=== PATIENT | male | born 1975 | race Caucasian/White ===

== ENCOUNTER 2017-11-19 16:36 | Inpatient (IN) | payer OTHER ==
[~2017-11-19] VITALS: Ht 175.3 cm; Wt 88.9 kg
--- NOTE | 2017-11-19 16:53 | NUR ---
BIB RA C/O EPIGASTRIC PAIN, RADIATING TO THE UPPER ABDOMEN X 45 MIN, NOW RESOLVED. PLACED ON MONITOR. AWAITING MD ORDER
[2017-11-19] MEDS ORDERED: FAMOTIDINE/PF INJ 20 MG/2 ML VIAL IV ONE ×2 (17:00→17:11)
[2017-11-19] MEDS ORDERED: IV NS 0.9% 1,000 ML BAG IV ONE (17:00)
[2017-11-19] MEDS ORDERED: ONDANSETRON HCL/PF 4 MG/2 ML VIAL IVP ONE (17:00)
[2017-11-19] MEDS ORDERED: ONDANSETRON HCL/PF 4 MG/2 ML VIAL ONE (17:11)
[2017-11-19 17:21] LABS: BASOPHILS # (AUTO) 0.2 /CMM (0.0-0.2); EOSINOPHILS % (AUTO) 1.1 % (0.0-6.0); HEMATOCRIT 49 % (39-51); LYMPHOCYTES # (AUTO) 1.4 /CMM (0.8-4.8); LYMPHOCYTES % (AUTO) 11.5 % (20.0-44.0); MEAN CORPUSCULAR HGB CONC 35 g/dl (31.0-36.0); MEAN CORPUSCULAR VOLUME 90 fL (80-96); MONOCYTES # (AUTO) 0.7 /CMM (0.1-1.30); MONOCYTES % (AUTO) 5.5 % (2.0-12.0); NEUTROPHILS # (AUTO) 10.1 /CMM (1.8-8.9); NEUTROPHILS % (AUTO) 79.9 % (43.0-81.0); PLATELET COUNT (AUTO) 200 /CMM (150-450); RDW COEFFICIENT OF VARIATION 11.6 (11.5-15.0); RED BLOOD CELL COUNT(AUTO) 5.38 MIL/uL (4.5-6.0); WHITE BLOOD COUNT (AUTO) 12.5 K/uL (4.3-11.0)
--- NOTE | 2017-11-19 17:21 | NUR ---
LAC #18 IVG ACCESS. BLOOD SAMPLE COLLECTED SENT TO LAB
[2017-11-19 17:32] LABS: CALCIUM, SERUM 9.6 mg/dL (8.5-10.1); CARBON DIOXIDE 31 mmol/L (21-32); CHLORIDE 100 mmol/L (98-107); CREATININE 1.2 mg/dL (0.6-1.3); GLUCOSE 103 mg/dL (74-106); POTASSIUM 4.4 mmol/L (3.5-5.1); SODIUM SERUM 139 mmol/L (136-145); UREA NITROGEN, BLOOD 20 mg/dL (7-18)
[2017-11-19 17:38] LABS: ALANINE AMINOTRANSFERASE 262 U/L (12-78); ALBUMIN 4.5 g/dL (3.4-5.0); ALKALINE PHOSPHATASE 83 U/L (46-116); ASPARTATE AMINOTRANSFERASE 299 U/L (15-37); BILIRUBIN,DIRECT 0.7 mg/dL (0.0-0.2); BILIRUBIN,TOTAL 2.8 mg/dL (0.2-1.0); INR 0.98 (0.85-1.15); LIPASE 383 U/L (73-393); TOTAL PROTEIN, SERUM 8.2 g/dL (6.4-8.2)
[2017-11-19 17:39] LABS: TROPONIN I < 0.017 ng/mL (0.00-0.056)
--- NOTE | 2017-11-19 17:51 | NUR ---
URINE SAMPLE COLLECTED SENT TO LAB
[2017-11-19 17:54] LABS: APPEARANCE,URINE Clear (CLEAR); BILIRUBIN,URINE Negative (NEGATIVE); BLOOD, URINE Trace-intact Ery/uL (NEGATIVE); COLOR,URINE Yellow (YELLOW); KETONES,URINE Negative (NEGATIVE); LEUKOCYTE ESTERASE ,URINE Negative (NEGATIVE); NITRITE, URINE Negative (NEGATIVE); PROTEIN,URINE Negative (NEGATIVE); UGLUCOSE Negative (NEGATIVE)
[2017-11-19 18:19] LABS: BACTERIA,URINE Rare /HPF (None Seen); MUCUS,URINE Moderate /LPF (None Seen); RBC,URINE 0-2 /HPF (0-2); SQUAMOUS EPITHELIAL CELL,UR None Seen /HPF (None Seen); WBC,URINE NONE SEEN /HPF (0-3)
[2017-11-19] MEDS ORDERED: CEFTRIAXONE 1 G in IV D5W 50 ML IV ONE (18:30)
[2017-11-19] MEDS ORDERED: MORPHINE SULFATE INJ 2 MG/ML DISP.SYRIN IV ONE (18:30)
[2017-11-19] MEDS ORDERED: FLAGYL/NS RTU 500 MG/100 ML PIGGYBACK IV ONE (18:30)
[2017-11-19] MEDS ORDERED: IV NS 0.9% 1,000 ML IV PRN (18:31)
[2017-11-19] MEDS ORDERED: METRONIDAZOLE 500MG/ NS 100ML 100 ML IV ONE (18:45)
[2017-11-19] MEDS ORDERED: CEFTRIAXONE 1GM BAG (ER ONLY) 50 ML IV ONE (18:45)
[2017-11-19] MEDS ORDERED: MORPHINE SULFATE INJ 4 MG/ML DISP.SYRIN ONE (18:46)
[2017-11-19] MEDS ORDERED: MAG HYDROX/AL HYDROX/SIMETH 30 ML UDC PO PRN (19:00)
[2017-11-19] MEDS ORDERED: ONDANSETRON HCL/PF 4 MG/2 ML VIAL IV PRN (19:00)
[2017-11-19] MEDS ORDERED: ONDANSETRON HCL/PF 4 MG/2 ML VIAL IVP PRN (19:00)
[2017-11-19] MEDS ORDERED: FENTANYL PF 100MCG/2ML AMPUL IV PRN (19:00)
[2017-11-19] MEDS ORDERED: MAGNESIUM HYDROXIDE 30 ML UDC PO PRN (19:00)
--- NOTE | 2017-11-19 19:10 | NUR ---
REPORT GIVEN TO MONICA FOR [facility]
--- NOTE | 2017-11-19 20:00 | NUR ---
REPORT GIVEN TO CYNDEE FRYE FOR [facility].
--- NOTE | 2017-11-19 20:23 | NUR ---
TRANSFERRED PATIENT TO MS BED VIA WHEELCHAIR. AT BEDSIDE. NAD NOTED. VSS.
[2017-11-19 20:30] VITALS: BP 118/69
[2017-11-19] MEDS: PANTOPRAZOLE 40 MG VIAL IV SCH (21:23)
[2017-11-20] VITALS (8 sets, daily range): BP systolic 98–128; BP diastolic 63–78
[2017-11-20] MEDS ORDERED: METRONIDAZOLE 500MG/ NS 100ML 100 ML IV ONE (05:00)
[2017-11-20] MEDS: METRONIDAZOLE 500MG/ NS 100ML 500 MG in PREMIX 1 EA IV SCH ×2 (05:01→12:59)
[2017-11-20 05:52] LABS: BASOPHILS % (AUTO) 0.3 % (0.0-2.0); EOSINOPHILS % (AUTO) 3.7 % (0.0-6.0); HEMATOCRIT 47 % (39-51); HEMOGLOBIN 15.9 g/dL (13.5-17.5); MEAN CORPUSCULAR HGB CONC 34 g/dl (31.0-36.0); MEAN CORPUSCULAR VOLUME 91 fL (80-96); MONOCYTES # (AUTO) 0.7 /CMM (0.1-1.30); MONOCYTES % (AUTO) 8.5 % (2.0-12.0); NEUTROPHILS # (AUTO) 4.9 /CMM (1.8-8.9); NEUTROPHILS % (AUTO) 62.5 % (43.0-81.0); PLATELET COUNT (AUTO) 188 /CMM (150-450); RDW COEFFICIENT OF VARIATION 12.5 (11.5-15.0); RED BLOOD CELL COUNT(AUTO) 5.11 MIL/uL (4.5-6.0); WHITE BLOOD COUNT (AUTO) 7.8 K/uL (4.3-11.0)
[2017-11-20 06:33] LABS: ALBUMIN 3.7 g/dL (3.4-5.0); BILIRUBIN,TOTAL 2.7 mg/dL (0.2-1.0); CALCIUM, SERUM 8.7 mg/dL (8.5-10.1); CREATININE 1.1 mg/dL (0.6-1.3); PHOSPHORUS 3.8 mg/dL (2.5-4.9); POTASSIUM 4.6 mmol/L (3.5-5.1); TOTAL PROTEIN, SERUM 7.1 g/dL (6.4-8.2)
--- NOTE | 2017-11-20 07:24 | NUR ---
MS RN CLOSING NOTE Patient is resting comfortably AAOx4, breathing on RA with no SOB, and no signs of acute distress. Patient slept fairly well overnight and did not report any pain. Peripheral IV in left AC running NS at 100 ml/hr. Patient remained NPO for nuc medicine scan and possible cholecystectomy pending scan results. Bed is in low/locked position, two side rails up, call olson within reach. All orders carried out and patient needs met. Patient care endorsed to day shift nurse.
--- NOTE | 2017-11-20 07:30 | NUR ---
MS RN OPENING NOTES RECEIVED PATIENT IN STABLE CONDITION. IN NO APPARENT DISTRESS. BEDSIDE RAILS ARE UPX2. BED IS LOCKED AND LOWERED. CALL LIGHT IS WITHIN REACH. IV LINE IS INTACT AND PATENT. WILL CONTINUE TO MONITOR.
[2017-11-20] MEDS: PANTOPRAZOLE 40 MG VIAL IV SCH (09:00)
--- NOTE | 2017-11-20 09:45 | NUR ---
PATIENT IS HAVING A NUCLEAR MEDICINE SCAN. PROTONIX NOT ADMINISTERED.
--- NOTE | 2017-11-20 16:10 | NUR ---
PATIENT WAS TAKEN TO SURGERY.
[2017-11-20] MEDS ORDERED: MIDAZOLAM HCL 2 MG/2ML VIAL ONE (16:38)
[2017-11-20] MEDS ORDERED: ROCURONIUM BROMIDE 50 MG/5 ML ONE (16:39)
[2017-11-20] MEDS ORDERED: LIDOCAINE 1%-EPI 1:100,000 20 ML VIAL ONE (17:19)
[2017-11-20] MEDS ORDERED: BUPIVACAINE 0.25% 75 MG/30 ML VIAL ONE (17:19)
[2017-11-20] MEDS ORDERED: FENTANYL PF 100MCG/2ML AMPUL IV PRN (18:00)
[2017-11-20] MEDS ORDERED: CEFTRIAXONE 1 G in IV D5W 50 ML IV SCH (18:00)
--- NOTE | 2017-11-20 18:49 | NUR ---
MS RN CLOSING NOTES PATIENT IS IN STABLE CONDITION. IN NO APPARENT DISTRESS. BEDSIDE RAILS ARE UPX2. BED IS LOCKED AND LOWERED. CALL LIGHT IS WITHIN REACH. IV LINE IS INTACT AND PATENT. WILL ENDORSE CARE TO PROMOTION PRODUCER NURSE FOR [facility].
[2017-11-20] MEDS ORDERED: FENTANYL PF 100MCG/2ML AMPUL ONE (19:13)
--- NOTE | 2017-11-20 20:15 | NUR ---
MS RN OPENING NOTE Patient returned from surgery (lap cholecystectomy) AAOx4, on 2L O2 NC with no SOB, and no signs of acute distress. Patient has four bandages clean/dry/intact covering four incisions. IV fluids were resumed - NS at 100 ml/hr running through left AC 20g. Vitals WNL, patient is afebrile. Will continue to check vital signs q15min x4, q30min x2, and q1hr x4.
[2017-11-20] MEDS: CEFAZOLIN SODIUM 1 GM in IV SODIUM CHLORIDE 0.9% 50 ML IV SCH (21:22)
[2017-11-20] MEDS: HYDROCODONE/APAP 5/325MG 1 EACH TABLET PO PRN (21:23)
--- NOTE | 2017-11-20 21:23 | NUR ---
NORCO GIVEN ORDERED FOR C/O MOD ABD PAIN .WILL CONT TO MONITOR ,
[2017-11-20] MEDS ORDERED: SENNOSIDES 8.6 MG TABLET PO PRN (22:00)
[2017-11-20] MEDS: ACETAMINOPHEN 325 MG TABLET PO PRN (23:14)
--- NOTE | 2017-11-20 23:15 | NUR ---
MS RN NOTE - prn Tylenol Patient reported mild pain (3-4) at rest, exacerbated with changing position and taking deep breaths. Patient inquired about pain prescribed pain medication. Because patient received Anson just 2 hours ago, patient was offered prn Tylenol, which he was agreeable to. Will continue to monitor.
--- NOTE | 2017-11-21 01:26 | NUR ---
PT TOLERATED THE ICE CHIPS, WATER, JELLO AND CRACKER WELL. DIET UPGRADED TO REGULAR.
--- NOTE | 2017-11-21 02:35 | NUR ---
FENTANYL GIVEN ORDERED PER PT'S REQUEST FOR C/O SEVERE ABD. PAIN. PT MAINTAINED O2 SATURATION OF 95-96% ON RA. PT WAS PLACED ON SUPPLEMENTAL O2 AFTER RECEIVING THE MEDICATION AND REMAINED ON CONTINUOUS O2 SAT. MONITORING.
[2017-11-21] MEDS: CEFAZOLIN SODIUM 1 GM in IV SODIUM CHLORIDE 0.9% 50 ML IV SCH (05:02)
[2017-11-21] MEDS: ACETAMINOPHEN 325 MG TABLET PO PRN (05:33)
--- NOTE | 2017-11-21 06:30 | NUR ---
MS RN CLOSING NOTE Patient is AAOx4, breathing on RA with no SOB, and no signs of acute distress. Patient has four incisions covered with dressings that are clean, dry, and intact. Peripheral left AC 20g is running NS at 100 ml/hr. Vital signs remained stable post surgery. Patient's pain level is currently 3/10 - Fentanyl last given at 0232 and Tylenol given at 0533. Bed is in low/locked position, two side rails up, call olson within reach. All orders carried out and patient needs met. Patient care will be endorsed to day shift nurse.
[2017-11-21 07:20] LABS: ALBUMIN 3.7 g/dL (3.4-5.0); BILIRUBIN,TOTAL 3.2 mg/dL (0.2-1.0); CALCIUM, SERUM 8.7 mg/dL (8.5-10.1); CREATININE 1.2 mg/dL (0.6-1.3); POTASSIUM 4.3 mmol/L (3.5-5.1); TOTAL PROTEIN, SERUM 6.9 g/dL (6.4-8.2)
--- NOTE | 2017-11-21 07:24 | NUR ---
MS/RN Patient received Patient received from retail shift manager. Sleeping soundly at thistime, appears in no distress. Safety measures in place. Call light within reach, will continue to monitor and ensure safety.
[2017-11-21 07:36] LABS: BASOPHILS % (AUTO) 0.2 % (0.0-2.0); EOSINOPHILS % (AUTO) 0.2 % (0.0-6.0); HEMATOCRIT 43 % (39-51); HEMOGLOBIN 14.9 g/dL (13.5-17.5); LYMPHOCYTES # (AUTO) 1.2 /CMM (0.8-4.8); LYMPHOCYTES % (AUTO) 13.6 % (20.0-44.0); MEAN CORPUSCULAR HGB CONC 35 g/dl (31.0-36.0); MEAN CORPUSCULAR VOLUME 91 fL (80-96); MONOCYTES # (AUTO) 0.5 /CMM (0.1-1.30); MONOCYTES % (AUTO) 5.9 % (2.0-12.0); NEUTROPHILS # (AUTO) 6.9 /CMM (1.8-8.9); NEUTROPHILS % (AUTO) 80.1 % (43.0-81.0); PLATELET COUNT (AUTO) 186 /CMM (150-450); RDW COEFFICIENT OF VARIATION 12.4 (11.5-15.0); RED BLOOD CELL COUNT(AUTO) 4.71 MIL/uL (4.5-6.0); WHITE BLOOD COUNT (AUTO) 8.6 K/uL (4.3-11.0)
[2017-11-21 08:00] VITALS: BP 123/79
[2017-11-21 08:04] VITALS: BP 123/79
[2017-11-21] MEDS: DOCUSATE SODIUM 250 MG CAPSULE PO SCH ×2 (08:25→17:00)
[2017-11-21] MEDS: PANTOPRAZOLE 40 MG VIAL IV SCH (08:25)
--- NOTE | 2017-11-21 09:14 | NUR ---
MS/RN Medications Morning medications administered as ordered.
[2017-11-21] MEDS ORDERED: SIMETHICONE 80 MG TAB.CHEW PO PRN (12:00)
--- NOTE | 2017-11-21 12:30 | NUR ---
MS/RN New orders New order given for simethicone 80mg QID prn for gas pain. Pain medeication and gas pain med administered.
--- NOTE | 2017-11-21 15:00 | NUR ---
MS/RN S/B Dr Castellanos Seen by Dr Castellanos - discharge to be held due to elevated total bilirubin level continuing to rise, today level at 3.2. STAT MRCP ordered along with GI consult.
--- NOTE | 2017-11-21 15:50 | NUR ---
MS/RN Consent MRI checklist completed.
[2017-11-21 16:00] VITALS: BP 121/72
--- NOTE | 2017-11-21 16:15 | NUR ---
MS/RN MRCP Patient taken to radiology for MRCP.
--- NOTE | 2017-11-21 18:30 | NUR ---
MS/RN End note Continue to await results of MRCP, npo until resulted or hear back from Dr Castellanos. Face sheet sent to Elle FRENCH aware of consult for patient. No further complaints of pain, all needs attended, will endorse to maintenance technician 3rd shift.
--- NOTE | 2017-11-21 19:45 | NUR ---
MS RN NOTES RECEIVED A/O X4,SITTING ON BEDSIDE CHAIR,HAVING DINNER FOOD.S/O LAP CHOLECYSTECTOMY,PAIN BEARABLE AT THE MOMENT.SALINE LOCK LAC INTACT AND PATENT.CALL LIGHT IN REACH,NEEDS ANTICIPATED.
[2017-11-21 19:55] VITALS: BP 116/80
[2017-11-21 20:00] VITALS: BP 116/80
[2017-11-21] MEDS: HYDROCODONE/APAP 5/325MG 1 EACH TABLET PO PRN (21:18)
--- NOTE | 2017-11-21 21:18 | NUR ---
MS RN NOTES PAIN MANAGEMENT C/O ABDOMINAL PAIN 6/10 ON PAIN SCALE,NORCO 5/325MG 2 TABS PO GIVEN ORDERED FOR MODERATE PAIN
[2017-11-22] MEDS: ACETAMINOPHEN 325 MG TABLET PO PRN (00:32)
--- NOTE | 2017-11-22 00:32 | NUR ---
MS RN NOTES HAVING MILD ABDOMINAL PAIN,TYLENOL 650MG PO GIVEN PER PATIENT REQUEST.
--- NOTE | 2017-11-22 05:08 | NUR ---
MS RN NOTES C/O CONSTIPATION,SENOKOT 2 TABS PO GIVEN
--- NOTE | 2017-11-22 06:40 | NUR ---
MS RN NOTES PAIN MANAGEMENT EFFECTIVE FOR ABDOMINAL PAIN.AMBULATES TO THE HALLWAYS, AT BEDSIDE.IN NO ACUTE DISTRESS.FOR D/C TODAY AWAITING FOR RX FOR PAIN MANAGEMENT WITH DR LIU.WILL ENDORSE TO DAY NURSE FOR [facility].
[2017-11-22 07:13] LABS: BASOPHILS % (AUTO) 0.3 % (0.0-2.0); EOSINOPHILS % (AUTO) 3.8 % (0.0-6.0); HEMATOCRIT 42 % (39-51); HEMOGLOBIN 14.4 g/dL (13.5-17.5); LYMPHOCYTES # (AUTO) 1.9 /CMM (0.8-4.8); LYMPHOCYTES % (AUTO) 24.8 % (20.0-44.0); MEAN CORPUSCULAR HGB CONC 35 g/dl (31.0-36.0); MEAN CORPUSCULAR VOLUME 92 fL (80-96); MONOCYTES # (AUTO) 0.7 /CMM (0.1-1.30); MONOCYTES % (AUTO) 9.3 % (2.0-12.0); NEUTROPHILS # (AUTO) 4.9 /CMM (1.8-8.9); NEUTROPHILS % (AUTO) 61.8 % (43.0-81.0); PLATELET COUNT (AUTO) 177 /CMM (150-450); RDW COEFFICIENT OF VARIATION 12.5 (11.5-15.0); RED BLOOD CELL COUNT(AUTO) 4.52 MIL/uL (4.5-6.0); WHITE BLOOD COUNT (AUTO) 7.9 K/uL (4.3-11.0)
[2017-11-22 07:40] LABS: BILIRUBIN,TOTAL 3.7 mg/dL (0.2-1.0); CALCIUM, SERUM 9.1 mg/dL (8.5-10.1); CREATININE 1.1 mg/dL (0.6-1.3); POTASSIUM 4.2 mmol/L (3.5-5.1); TOTAL PROTEIN, SERUM 7.1 g/dL (6.4-8.2)
[2017-11-22 08:00] VITALS: BP 109/64
[2017-11-22] MEDS ORDERED: HYDR-3972 PO (08:52)
[2017-11-22] MEDS: DOCUSATE SODIUM 250 MG CAPSULE PO SCH (09:00)
[2017-11-22] MEDS: PANTOPRAZOLE 40 MG VIAL IV SCH (09:00)
--- NOTE | 2017-11-22 09:30 | NUR ---
M/S RN - Discharge Patient feeling better, POD#1 Lap Cholecystectomy, discharged home in stable condition. Reviewed discharge instructions with pt and he verbalized full understanding of all teachings including medication management and f/u with PCP in [address] Castellanos in 7-10 days. All belongings with pt and he denies any missing items. VSS, denies abdominal pain, no c/o nausea and vomiting, tolerated regular diet well, no apparent distress seen. Heplock removed on the LAC with catheter tip intact, no redness and no swelling noted at the site. Skin is intact except for 4 lap incision sites, mepilex dressing intact, refused photo to be taken. Discharge papers signed and copy was given per protocol. Written prescription for [place] given to the patient. Accompanied to the lobby via wheelchair and transported by private car by Kavya.
== END 2017-11-22 09:30 | disposition home or self-care (01) | DRG 417 ==
LOC: ER 16:38 → MEDSG2 19:52
PROVIDERS: ADMIT Nurse Practitioner Acute Care; ATTEND Nurse Practitioner Acute Care
PROC: 0FT44ZZ Resection of Gallbladder, Percutaneous Endoscopic Approach (ICD-10-PCS; principal; 2017-11-20 16:00)
DX: K80.20 Calculus of gallbladder without cholecystitis without obstruction (principal); N17.0 Acute kidney failure with tubular necrosis; R74.0 Nonspecific elevation of levels of transaminase and lactic acid dehydrogenase [LDH]; Z80.1 Family history of malignant neoplasm of trachea, bronchus and lung; K76.0 Fatty (change of) liver, not elsewhere classified; E80.4 Gilbert syndrome
CPT/HCPCS: 36415; 74181-TC; 76705-TC; 78226; 80048-TC; 80053-TC; 80076-TC; 81000-TC; 83690-TC; 83735-TC; 84100-TC; 84484-TC; 85025-TC; 85730-TC; 86850-TC; 87040-TC; 87081-TC; 88304-TC; 88305-TC; A4216; A4606; A6402; A9537; C9113; J0690; J0696; J1100; J1885; J2250; J2270; J2405; J2704; J2710; J3010; J3490; J7030; J7060; Z7610